=== PATIENT | female | born 2000 | race Caucasian/White ===

== ENCOUNTER 2023-10-05 14:34 | Emergency (ER) | payer BC ==
[~2023-10-05] VITALS: Ht 162.6 cm; Wt 68.0 kg
[2023-10-05] MEDS ORDERED: YASMIN 28 TABL1 EACH PO (15:06)
== END 2023-10-05 17:44 | disposition home or self-care (01) ==
LOC: ER 14:34
DX: H66.90 Otitis media, unspecified, unspecified ear (principal); Z91.013 Allergy to seafood